=== PATIENT | male | born 1965 | race Caucasian/White ===

== ENCOUNTER → 2016-12-01 | Outpatient (CLI) | payer BC ==
[2016-12-01 13:13] LABS: Basophils % (A) 1 %; CH 32.5; CHCM 33.2; Eosinophils # (A) 0.1 k/uL (0-0.7); Eosinophils % (A) 2 %; HCT 49.2 % (39.0-53.0); HDW 2.35; HGB 16.3 gm/dL (13.0-17.5); Luc # (Auto) 0.11; Luc % (Auto) 1; Lymphocytes # (A) 1.5 k/uL (1.0-4.8); Lymphocytes % (A) 19 %; MCH 32.5 pg (25.0-35.0); MCHC 33.1 g/dL (31.0-37.0); MCV 98.3 fL (80.0-100.0); Mean Platelet Volume 7.7; Monocytes # (A) 0.5 k/uL (0-1.0); Monocytes % (A) 6 %; Neutrophils # (A) 5.5 k/uL (1.3-7.7); Neutrophils % (A) 72 %; RDW 13.3 % (11.5-15.5); WBC 7.7 k/uL (3.8-10.6); WBC (Perox) 7.62
[2016-12-01 13:17] LABS: Appearance,Urine Clear (Clear); Bilirubin,Urine Negative (Negative); Glucose,Urine (UA) Negative (Negative); Ketones,Urine Negative (Negative); Leukocyte Esterase,Urine Negative (Negative); Nitrite,Urine Negative (Negative); Protein,Urine Negative (Negative); Specific Gravity,Urine 1.012 (1.001-1.035); UA Billing (MACRO vs. MICRO) CHEM
[2016-12-01 13:21] LABS: Partial Thromboplastin Time 25.5 sec (22.0-30.0); Prothrombin Time 10.2 sec (9.0-12.0)
[2016-12-01 13:23] LABS: Anion Gap 6 mmol/L; Blood Urea Nitrogen 8 mg/dL (9-20); Calcium 9.4 mg/dL (8.4-10.2); Carbon Dioxide 30 mmol/L (22-30); Chloride 103 mmol/L (98-107); Glucose 90 mg/dL (74-99); Non-African American GFR(MDRD) >60 (>60 ml/min/1.73 sqM); Potassium 4.7 mmol/L (3.5-5.1); Sodium 139 mmol/L (137-145)
== END | disposition home or self-care (01) ==
LOC: LABPAT 12:36
PROVIDERS: ATTEND Orthopaedic Surgery Orthopaedic Surgery of the Spine
DX: Z01.810 Encounter for preprocedural cardiovascular examination (principal); M48.02 Spinal stenosis, cervical region
CPT/HCPCS: 80048; 81003; 85025; 85610; 85730; 86850; 86900; 86901

== ENCOUNTER 2016-12-10 07:00 | Inpatient (IN) | payer BC, OTHER ==
[2016-12-05 14:26] VITALS: BMI 24.0
[~2016-12-10 07:00] MED LIST: BACITRACIN 50,000 UNIT, POLYMYXIN B 500,000 UNIT in SODIUM CHLORIDE 0.9% IRRIGATIO 1,00... IRRIGATION ONE; DEXAMETHASONE SOD PHOSPHATE 10 MG/ML 1 ML VIAL IV ONE; MIDAZOLAM 2 MG/2 ML VIAL IV PRN; ONDANSETRON 4 MG/2 ML VIAL IVP ONE; SCOPOLAMINE 1.5MG/72HR PATCH TRANSDERM ONE; ceFAZolin 2 GM in SODIUM CHLORIDE 0.9% 100 ML IVPB ONE
[2016-12-10] MEDS: LACTATED RINGERS 1,000 ML IV SCH (08:39)
[2016-12-10] MEDS ORDERED: LIDOCAINE 1% 20 ML VIAL (10MG/ML) FOR IV START INTRADERMA ONE (08:40)
[2016-12-10] MEDS ORDERED: DEXAMETHASONE SOD PHOS (MDV) 100 MG/10 ML VIAL ONE (09:24)
[2016-12-10] MEDS ORDERED: THROMBIN (BOVINE) 5,000 UNIT VIAL TOPICAL ONE (09:24)
[2016-12-10] MEDS ORDERED: LIDOCAINE 1% INJ 10MG/ML (20 ML MDV) ONE (09:24)
[2016-12-10] MEDS ORDERED: ePHEDrine 50 MG/ML 1 ML AMP ONE (09:24)
[2016-12-10] MEDS ORDERED: SUCCINYLCHOLINE CHLORIDE 100 MG/5 ML SYR IV ONE (09:24)
[2016-12-10] MEDS ORDERED: PROPOFOL 10 MG/ML 20 ML VIAL IV ONE (09:24)
[2016-12-10] MEDS ORDERED: GELATIN SPONGE,ABSORB (LARGE) 1 EACH SPONGE TOPICAL ONE (09:24)
[2016-12-10] MEDS ORDERED: MIDAZOLAM 2 MG/2 ML VIAL ONE (09:24)
[2016-12-10] MEDS ORDERED: fentaNYL (PF) 50 MCG/ML 2 ML AMP ONE (09:24)
[2016-12-10] MEDS ORDERED: LIDOCAINE 0.5%-EPI 1:200,000 50 ML VIAL SQ ONE (09:24)
[2016-12-10] MEDS ORDERED: LACTATED RINGERS 1,000 ML IV ONE (10:15)
--- NOTE | 2016-12-10 10:29 | XR ---
EXAMINATION TYPE: XR cervical spine 1V DATE OF EXAM: 12/10/2016 10:17 AM CLINICAL HISTORY: pain TECHNIQUE: Crosstable lateral view of the cervical spine COMPARISON: None. FINDINGS: A localization device is at the C5-6 level anteriorly. IMPRESSION: Localization as noted
[2016-12-10] MEDS ORDERED: ONDANSETRON 4 MG/2 ML VIAL IVP PRN (11:51)
[2016-12-10] MEDS ORDERED: BENZOCAINE/MENTHOL LOZENG 1 EACH LOZENGE MUCOUS MEM PRN (11:51)
[2016-12-10] MEDS ORDERED: HYDROcodone/APAP 5-325MG 1 EACH TAB PO PRN ×2 (11:51)
[2016-12-10] MEDS ORDERED: PANTOPRAZOLE 40 MG TABLET PO PRN (11:53)
[2016-12-10] MEDS ORDERED: TOPIRAMATE 25 MG TAB PO PRN (11:53)
--- NOTE | 2016-12-10 12:00 | P.OP ---
Date of Procedure: 12/10/16 Preoperative Diagnosis: Cervical stenosis C4 5 C5 6 C6 7, herniated nucleus pulposis C4 5 C5 6 C6 7, degenerative disc disease C4 5 C5 6 C6 7, upper extremity radiculopathy Postoperative Diagnosis: Same Anesthesia: GETA Pathology: none sent Condition: stable Disposition: PACU Description of Procedure: BRIEF OPERATIVE NOTE Preoperative Diagnosis: Cervical stenosis C4 5 C5 6 C6 7, herniated nucleus pulposis C4 5 C5 6 C6 7, degenerative disc disease C4 5 C5 6 C6 7, upper extremity radiculopathy with weakness Postoperative Diagnosis: Same Procedure: Anterior cervical decompression with discectomy and fusion C4 5 C5 6 C6 7 Placement of interbody graft C4 5 C5 6 C6 7 Application of anterior cervical plate C4 5 6 and 7 Surgeon: Dr. Navarro Last Inserter: Raúl Sagastume is present throughout the entire the case persistence during positioning, dissection, exposure, visualization, and all crucial elements of the case as well as closure. Anesthesia: General anesthesia Estimated blood loss: Approximately 100 mL Complications: None apparent Components implanted: K2M [place] anterior cervical plate system size 56 plate with 8 screws and vikos allograft bone graft Disposition: To recovery room in good stable condition. OPERATIVE INDICATIONS The patient has had long-standing issues in their neck and upper extremities. His found have significant stenosis with disc herniations at C4 5 C5 6 C6 7. She had significant degeneration with compression of his nerves. He was having sick significant radiculopathy particular at the right upper extremity and some evidence of weakness. He is not resolving despite aggressive conservative treatment and interventional pain management. He is having worsening symptoms despite conservative care The patient has been through conservative treatment. We discussed various treatment options including surgery, and the patient wishes to proceed with surgery We discussed the risk, patient's alternatives and benefits of surgery including but not limited to, risk of bleeding risk of infection, risk of need for further surgery, risk of decreased, loss of motion, muscle function, malunion nonunion, hardware failure, nerve damage, paralysis, heart attack, and . OPERATIVE SUMMARY After discussing all the risks, patient alternatives and benefits at length, the patient elected to proceed with surgical intervention, signed informed consent, and presented for their procedure. The patient was seen and examined in the preoperative holding area and the surgical site was marked. The patient was given antibiotics and brought to the operating room. The patient was positioned on the operating room table in a supine position being careful to pad any bony prominences and pressure points. The patient was sedated and intubated by anesthesia in standard fashion. Once the airway and C- spine were stabilized the patient's arms were padded and tucked at her side, with her shoulders gently taped. The head was placed in a donut pad with the neck in good neutral alignment and position. We were careful to maintain the patient's cervical spine and good neutral alignment and position throughout. The patient was prepped and draped in a normal standard fashion. An appropriate timeout and keystone protocol performed. We were able to proceed with the surgery. The local wound area was infiltrated with local anesthetic. An incision was made transversely approximately 2-1/2 cm over the appropriate levels at C5 6. Dissection was taken down subcutaneously to the level of the platysma which was split in line with its fibers. Dissection was taken with a carotid approach, with the trachea and esophagus medial and the carotid sheath laterally. We dissected down to the anterior surface of the vertebral bodies. Intraoperative x-ray was taken which showed a marker at the appropriate level at C5 6. With the appropriate level positively confirmed, we were able to proceed with discectomy at the appropriate levels. All of the operative levels were exposed appropriately. The patient had all their twitches back, and there was no evidence of recurrent laryngeal issue. The wound was copiously irrigated and suctioned dry as had been done periodically throughout the case. At the appropriate level/levels, first at C4 5 than at C5 6 then at C6 7, I established an annulotomy with an 11 blade scalpel. Large osteophytes removed from the anterior vertebral bodies particularly at C5 6, A discectomy was performed with a combination of pituitary rongeurs, curettes, a high-speed bur, and Kerrison rongeurs. The posterior longitudinal ligament was taken down as were any posterior osteophytes. There are posterior osteophytes which were taken down centrally and at the lateral margins. This gave good central and bilateral foraminal decompression. There is no evidence of any dural tear or leak. The endplates were prepared with a high-speed bur. With the endplates in good parallel position, I was able to size for the appropriate size interbody graft. The wound was irrigated and suctioned dry the graft was prepared and malleted into position. It had good alignment and position with the anterior surface flush with the anterior surface of the vertebral bodies. This was done similarly the appropriate levels. With the grafts intact, I was able to measure and contour and appropriate sized plate. The plate was positioned at the midline over the appropriate levels from C4 to C7. Screw holes were established with a hand drill and drill guide. Screws were placed in good alignment and position with excellent bony purchase. They were seated under the locking device. The construct was checked and found to be stable. Intraoperative x-ray was taken which showed good alignment and position of the implants at the appropriate levels from C4 to C7. There was no evidence of any dural tear or leak. Good hemostasis was maintained. The wound was copiously irrigated and suctioned dry as had been done periodically throughout the case. The platysma was closed with absorbable suture. The subcutaneous tissue was closed. The subcuticular tissue was closed with absorbable suture. The wound was cleaned and dried and dressed appropriately. A soft cervical collar was placed appropriately. The patient was woken up by anesthesia, extubated, transferred back gently to their hospital bed and brought to the recovery room in good stable condition. The patient will be admitted to the hospital for appropriate postoperative care , medical management and monitoring. We will continue to follow them closely about the postoperative course.
[2016-12-10 12:07] VITALS: RESP 16
--- NOTE | 2016-12-10 12:09 | XR ---
EXAMINATION TYPE: XR cervical spine 1V DATE OF EXAM: 12/10/2016 11:41 AM COMPARISON: NONE HISTORY: acdf TECHNIQUE: xtable lateral view FINDINGS: ACDF changes C4-C7. Anterior fixation plate. Alignment wnl.
[2016-12-10] MEDS: HYDROmorphone 1 MG/ML 1 ML SYRINGE IVP PRN ×4 (12:18→23:49)
[2016-12-10] MEDS ORDERED: ONDANSETRON 4 MG/2 ML VIAL IVP ONE (12:29)
[2016-12-10] MEDS: DIAZEPAM 5 MG TAB PO PRN ×2 (12:46→17:49)
[2016-12-10] MEDS: SODIUM CHLORIDE 0.9% 1,000 ML IV SCH (14:15)
--- NOTE | 2016-12-10 15:42 | P.PN ---
Progress Note - Text Patient is seen postoperatively on the floor. Apparently he has been quite agitated and is complaining primarily of burning with urination. He is not complaining of arm pain or headaches currently. He is ambulatory around the room. He has been combative with and yelling at the nursing staff. He states that he is going to leave the hospital. His incision site appears to be clean his neck is soft and supple. He is amatory independently. He is conversant with me. He has urine in the Journal. He apparently urinated about 50 mL downstairs recovery in his urinated approximately 20 more cc here on the medical floor into the urinal. Urine appears to be clear yellow with no evidence of purulence. Is not cloudy. His extremities have good active passive range of motion throughout. Immediate postop status post anterior cervical discectomy and fusion C 56 C6 7 Dysuria The patient has dysuria postoperatively. He did have a Monet catheter placed during the surgery which was apparently not traumatic. There does not appear to be any obvious blood or obvious discoloration and his urine currently but we will send it for urinalysis. With his agitation and demeanor all go ahead and send toxicology as well. The patient is quite agitated and is stating that he would like to go home. If his neck is clear and stable and he is able tolerate soft diet, if he is able to void freely without evidence of infection, if he is able tolerate pain adequately with oral medications and the surgical site appears stable than I would be okay with him being discharged home this evening with close follow-up. If he is not able to do these things and we should keep him overnight. I tried to explain this to him but it is difficult to determine if he is fully understanding as he still remains agitated though conversant. From a surgical standpoint we have not had any specific nor notable issues or problems with his treatment procedures thus far. There has not been any apparent deviation or propblem with standard procedure to account for his current complaints. We will continue to workup his issues to try to find a resolution for his primary complaint which is burning on urination. I tried to discuss this with him at bedside and answers questions.
[2016-12-10] MEDS ORDERED: ceFAZolin 2 GM in SODIUM CHLORIDE 0.9% 100 ML IVPB SCH (16:00)
[2016-12-10] MEDS ORDERED: LIDOCAINE 2% GEL 30 ML TUBE TOPICAL PRN (16:10)
[2016-12-10 16:17] LABS: Basophils % (A) 0 %; CH 32.5; Eosinophils % (A) 0 %; HCT 42.2 % (39.0-53.0); HDW 2.36; HGB 14.5 gm/dL (13.0-17.5); Luc # (Auto) 0.03; Luc % (Auto) 0; Lymphocytes # (A) 0.5 k/uL (1.0-4.8); Lymphocytes % (A) 3 %; MCHC 34.4 g/dL (31.0-37.0); Mean Platelet Volume 7.8; Monocytes # (A) 0.3 k/uL (0-1.0); Monocytes % (A) 2 %; Neutrophils # (A) 16.4 k/uL (1.3-7.7); Neutrophils % (A) 95 %; RDW 13.1 % (11.5-15.5); WBC 17.3 k/uL (3.8-10.6); WBC (Perox) 17.26
[2016-12-10 16:26] LABS: Anion Gap 7 mmol/L; Blood Urea Nitrogen 12 mg/dL (9-20); Calcium 8.6 mg/dL (8.4-10.2); Carbon Dioxide 24 mmol/L (22-30); Chloride 107 mmol/L (98-107); Glucose 107 mg/dL (74-99); Non-African American GFR(MDRD) >60 (>60 ml/min/1.73 sqM); Potassium 3.7 mmol/L (3.5-5.1); Sodium 138 mmol/L (137-145)
[2016-12-10 16:46] LABS: Appearance,Urine Clear (Clear); Bacteria,Urine Rare /hpf; Bilirubin,Urine Negative (Negative); Glucose,Urine (UA) Negative (Negative); Ketones,Urine Negative (Negative); Leukocyte Esterase,Urine Trace (Negative); Nitrite,Urine Negative (Negative); Particle Count 264; Protein,Urine Negative (Negative); Specific Gravity,Urine 1.002 (1.001-1.035); UA Billing (MACRO vs. MICRO) MICRO; Urobilinogen,Urine <2.0 mg/dL (<2.0); WBC,Urine 7 /hpf (0-5)
[2016-12-10] MEDS ORDERED: diphenhydrAMINE 50 MG/ML 1 ML VIAL IVP PRN (19:18)
[2016-12-10] MEDS ORDERED: diphenhydrAMINE 50 MG/ML 1 ML VIAL IVP STA (19:22)
[2016-12-10] MEDS ORDERED: CLINDAMYCIN 300 MG in DEXTROSE 5% IN WATER 50 ML IVPB STA ×2 (19:22)
[2016-12-10] MEDS: clonazePAM 1 MG TAB PO SCH (21:23)
[2016-12-11] MEDS: SODIUM CHLORIDE 0.9% 1,000 ML IV SCH (04:07)
[2016-12-11] MEDS: LACTATED RINGERS 1,000 ML IV SCH (05:57)
[2016-12-11] MEDS: HYDROmorphone 1 MG/ML 1 ML SYRINGE IVP PRN (06:46)
--- NOTE | 2016-12-11 08:00 | P.DS ---
Providers Date of admission: 12/10/16 07:00 Attending physician: Leisa Navarro Primary care physician: [place] Hospital Course: The patient presented on the day of admission as per his operative note.he underwent anterior cervical discectomy and fusion at C4 5 C5 6 and C6 7 for his cervical stenosis with herniations. He is able to swallow and is tolerating his soft diet. He has been ambulatory and is voiding freely. His pain is controlled with oral medications. Physical Exam The incision site is clean dry and intact. There is no erythema no drainage. There is no purulence no evidence of infection.his neck is soft and supple. There is no active drainage. Abdomen soft and nontender. Chest has good excursion with deep inspiration and expiration. The patient has active and passive range of motion intact at the upper and lower extremities. There is no acute change in neurologic status.he has good range of motion of his upper extremity's bilaterally. Hospital Course postoperative day #1 status post anterior cervical discectomy and fusion C4 5 C5 6 C6 7 for his cervical stenosis with disc herniation and upper extremity radiculopathy. The patient has been making good progress postoperatively. They have completed the prophylactic antibiotics without any signs or symptoms of infection. The patient has been able to advance their diet, and is tolerating diet adequately. The pain was initially controlled with IV medications and is now controlled appropriately with oral medications. The patient has been able to increase their mobilization. The patient has progressed appropriately. I think they are in good stable condition for discharge today. They will be sent home with appropriate prescriptions. I answered their questions to the best of my ability in a language that they can understand and they are agreeable with the plan. They will follow up as directedIn approximately 2 weeks or sooner if he is having any problems. Patient Condition at Discharge: Good Plan - Discharge Summary New Discharge Prescriptions: Hydrocodone/Acetaminophen [[place] 5-325] 1 tab PO Q6HR PRN #90 tab PRN Reason: Pain Discharge Medication List Citalopram Hydrobromide [CeleXA] 40 mg PO DAILY 12/05/16 [History] Ibuprofen [Motrin] 800 mg PO Q8HR PRN 12/05/16 [History] Omeprazole 20 mg PO DAILY PRN 12/05/16 [History] Topiramate [Topamax] 25 mg PO DAILY PRN 12/05/16 [History] clonazePAM [KlonoPIN] 1 mg PO BID 12/05/16 [History] Hydrocodone/Acetaminophen [[place] 5-325] 1 tab PO Q6HR PRN #90 tab 12/10/16 [Rx] Follow up Appointment(s)/Referral(s): Leisa Navarro DO [Doctor of Osteopathic Medicine] - 2 Weeks (With Raúl Puckett at Dr. Navarro's office) Activity/Diet/Wound Care/Special Instructions: avoid heavy or rigorous activity. May ambulate to tolerance. No overhead work. No repetitive bending twisting or lifting. No lifting greater than 20 pounds. Keep site clean. May shower with waterproof Tegaderm intact. Do not soak in a tub. On Thursday May remove dressing and then a shower with area uncovered, believed Steri-Strips intact and allow them to fray off on their own.
[2016-12-11] MEDS: clonazePAM 1 MG TAB PO SCH (08:03)
[2016-12-11 08:14] VITALS: BP 118/71; PULSE 76; TEMP 97.7
[2016-12-11] MEDS ORDERED: CITALOPRAM HYDROBROMIDE 20 MG TAB PO SCH (09:00)
== END 2016-12-11 11:05 | disposition home or self-care (01) | DRG 473 ==
LOC: 2ORMAIN 07:00 → 5MS5E 12:00
PROVIDERS: ADMIT Orthopaedic Surgery Orthopaedic Surgery of the Spine; ATTEND Orthopaedic Surgery Orthopaedic Surgery of the Spine
PROC: 0RG20Z0 (ICD-10-PCS; principal; 2016-12-10 09:10)
PROC: 0RT30ZZ Resection of Cervical Vertebral Disc, Open Approach (ICD-10-PCS; principal; 2016-12-10 09:10)
DX: M50.121 Cervical disc disorder at C4-C5 level with radiculopathy (principal); F32.9 Major depressive disorder, single episode, unspecified; M48.02 Spinal stenosis, cervical region; M50.221 Other cervical disc displacement at C4-C5 level; M50.222 Other cervical disc displacement at C5-C6 level; M50.223 Other cervical disc displacement at C6-C7 level; Z79.1 Long term (current) use of non-steroidal anti-inflammatories (NSAID); Z79.899 Other long term (current) drug therapy; K21.9 Gastro-esophageal reflux disease without esophagitis; F41.9 Anxiety disorder, unspecified; Z72.0 Tobacco use
CPT/HCPCS: 72020; 80048; 80306; 81001; 85025; 86850; 86900; 86901

== ENCOUNTER → 2017-12-23 | Outpatient (CLI) | payer BC ==
--- NOTE | 2017-12-23 07:34 | MR ---
EXAMINATION TYPE: MR cervical spine wo/w con DATE OF EXAM: 12/23/2017 6:45 AM COMPARISON: NONE HISTORY: M54.2 Cervicalgia / M54.12 Radiculopathy CONTRAST: 7 cc Gadavist. Multiplanar MultiSpin echo imaging of the cervical spine was performed. C2-C3: No evidence for degenerative disc disease. No disc bulge/herniation or protrusion. No Canal stenosis. Foramina are patent bilaterally. C3-C4: There is mild disc desiccation noted. Posterior disc bulge with small annular tear. Mild effac ement ventral thecal sac. No evidence for steven herniation or central stenosis. Visualized neural for los are patent bilaterally. C4-C5: Postsurgical changes of anterior cervical discectomy and fusion. No evidence for recurrent or residual disease. Mild posterior hypertrophic change identified. Mild effacement ventral thecal sac. Constriction of the thecal sac without evidence for overt stenosis at this time. Foramina are patent. C5-C6: Postsurgical changes of anterior cervical discectomy and fusion. No evidence for recurrent or residual disease. Mild posterior hypertrophic change identified. Mild effacement ventral thecal sac. Constriction of the thecal sac without evidence for overt stenosis at this time. Foramina are patent. C6-C7:Postsurgical changes of anterior cervical discectomy and fusion. No evidence for recurrent or r esidual disease. Mild posterior hypertrophic change identified. Mild effacement ventral thecal sac. C onstriction of the thecal sac without evidence for overt stenosis at this time. Mild right foraminal encroachment identified. C7-T1: No evidence for degenerative disc disease. No disc bulge/herniation or protrusion. No Canal stenosis. Foramina are patent bilaterally. No cervical spine fracture. There is normal alignment. Cervical spinal cord is of normal signal. C raniovertebral junction relationships are within normal limits. No pathologic enhancement. IMPRESSION: 1. Postsurgical changes of ACDF at C4-5, C5-6 and C6-7. There is hypertrophic change noted at each of these levels posteriorly with constriction of the thecal sac however no overt stenosis seen. See abo ve. 2. Posterior disc bulge with annular tear at C3-4.
== END | disposition home or self-care (01) ==
LOC: RADMRIMAIN 05:55
PROVIDERS: ATTEND Orthopaedic Surgery Orthopaedic Surgery of the Spine
DX: Z48.89 Encounter for other specified surgical aftercare (principal); M50.11 Cervical disc disorder with radiculopathy, high cervical region; Z98.890 Other specified postprocedural states; Z98.1 Arthrodesis status
CPT/HCPCS: 72156; A9581

== ENCOUNTER 2018-09-02 06:23 | Day surgery (SDC) | payer BC, OTHER ==
[2018-08-31 13:35] VITALS: BMI 25.0
[~2018-09-02 06:23] MED LIST changes: -BACITRACIN 50,000 UNIT, POLYMYXIN B 500,000 UNIT in SODIUM CHLORIDE 0.9% IRRIGATIO 1,00... IRRIGATION ONE; -DEXAMETHASONE SOD PHOSPHATE 10 MG/ML 1 ML VIAL IV ONE; +LACTATED RINGERS 1,000 ML IV SCH; +LIDOCAINE 1% 20 ML VIAL (10MG/ML) FOR IV START INTRADERMA PRN; -MIDAZOLAM 2 MG/2 ML VIAL IV PRN; -ONDANSETRON 4 MG/2 ML VIAL IVP ONE; -SCOPOLAMINE 1.5MG/72HR PATCH TRANSDERM ONE; -ceFAZolin 2 GM in SODIUM CHLORIDE 0.9% 100 ML IVPB ONE
[2018-09-02 07:19] VITALS: TEMP 96.8
[2018-09-02] MEDS ORDERED: PROPOFOL 10 MG/ML 20 ML VIAL IV ONE (07:33)
[2018-09-02] MEDS ORDERED: IV FLUID CONTINUATION 500 ML IV ONE (08:08)
--- NOTE | 2018-09-02 08:13 | P.PCN ---
Date of Procedure: 09/02/18 Description of Procedure: BRIEF HISTORY: Patient is a 53-year-old pleasant male patient scheduled for an elective colonoscopy as a part of screening. The patient has no prior history of colonoscopy in the past. He reports a familial history of colon cancer in his father. He denies any change in bowel habits, diarrhea, constipation, hematochezia or melena. PROCEDURE PERFORMED: Colonoscopy. PREOPERATIVE DIAGNOSIS: High risk screening colonoscopy, patient's first colonoscopy, family history of colon cancer. ESTIMATED BLOOD LOSS: Minimal. IV sedation per Anesthesia. PROCEDURE: After informed consent was obtained, the patient, was brought into the endoscopy unit. IV sedation was administered by Anesthesia under continuous monitoring. Digital rectal examination was normal. Initially the Olympus CF- 190 flexible video colonoscope was then inserted in the rectum, gradually advanced into the cecum without any difficulty. Careful examination was performed as the scope was gradually being withdrawn. Ileocecal valve and the appendiceal orifice were visualized and appeared normal. Prep was good. Mucosa of the cecum, ascending colon, transverse colon, descending colon, sigmoid colon , and rectum appeared normal, with mild scattered diverticulosis in the sigmoid and descending colon. Retroflexion was performed in the rectum and no lesions were seen, mild internal hemorrhoids seen. The patient tolerated the procedure well. IMPRESSION: Normal-appearing colon from rectum to cecum. Diverticulosis. Internal hemorrhoids. RECOMMENDATIONS: Findings of this examination were discussed with the patient and his sister. Okay to resume diet today. Repeat colonoscopy in 5 years given family history of colon cancer.
[2018-09-02 08:38] VITALS: BP 107/72; PULSE 71; RESP 18
== END 2018-09-02 09:20 | disposition home or self-care (01) ==
LOC: ORWHC2ENDO 06:23
PROVIDERS: ATTEND Internal Medicine
DX: Z12.11 Encounter for screening for malignant neoplasm of colon (principal); K57.30 Diverticulosis of large intestine without perforation or abscess without bleeding; K64.8 Other hemorrhoids; Z80.0 Family history of malignant neoplasm of digestive organs; K21.9 Gastro-esophageal reflux disease without esophagitis; K22.70 Barrett's esophagus without dysplasia; E78.5 Hyperlipidemia, unspecified; F41.9 Anxiety disorder, unspecified; Z79.899 Other long term (current) drug therapy; F17.210 Nicotine dependence, cigarettes, uncomplicated; Z98.1 Arthrodesis status
CPT/HCPCS: J2704; G0105

== ENCOUNTER → 2019-02-12 | Outpatient (CLI) | payer OTHER ==
--- NOTE | 2019-02-12 20:58 | MR ---
EXAMINATION TYPE: MR brain wo con DATE OF EXAM: 02/12/2019 COMPARISON: 12/18/2015 HISTORY: Migraine, dizziness, rt sided weakness/numbness TECHNIQUE: Multiplanar, multisequence images of the brain and brainstem is performed without IV. FINDINGS: Diffusion weighted images demonstrate no evidence of a recent infarct or other diffusion ab normality. There is no extra-axial fluid collection. The ventricular system and cisternal spaces are normal in size and appearance. The brain volume is age appropriate. Artifact is seen through the cerebellar hemispheres. There is stable size and number of the moderate burden of supratentorial nonspecific white matter changes predominating within the deep white matter demonstrated as T2/FLAIR hyperintensities with old lacunar injury of the left frontal hassan radiata unchanged from the prior of 2016. A solitary focus is seen within the left lateral melina on FLAIR axia l fat sat image 10 that is new from the prior. Midline structures demonstrate normal morphology. The craniocervical junction appears within normal limits. The dural venous sinuses appear patent. The visualized sinuses are clear and the globes are i ntact. Left-sided meliza bullosa is incidentally seen as well as scant mucosal thickening in the ethm oid sinuses. There is partial opacification of the right mastoid air cells. The globes are symmetric. Lenses are in place. Remaining visualized paranasal sinuses and mastoid air cells are well aerated. Left middle and inferior nasal turbinate mucosal hypertrophy is incidentally seen. IMPRESSION: 1. There is a new 5 mm left pontine focus of white matter change and stable size and number of the mo derate burden nonspecific white matter change in the supratentorial in comparison to the exam of 2016 . Considerations are for demyelinating disease or vasculitis given the distribution. Old left frontal deep white matter hassan radiata lacunar injury is unchanged. 2. Mild paranasal sinus disease and mucosal thickening of the left nasal turbinates with meliza bullo sa on the left incidentally seen.
== END | disposition home or self-care (01) ==
LOC: RADMRIMAIN 09:38
PROVIDERS: ATTEND Psychiatry & Neurology Neurology
DX: R90.89 Other abnormal findings on diagnostic imaging of central nervous system (principal)
CPT/HCPCS: 70551

== ENCOUNTER → 2019-08-25 | Outpatient (CLI) | payer OTHER ==
[2019-08-25 13:09] LABS: Basophils # (A) 0.1 k/uL (0-0.2); Basophils % (A) 2 %; Eosinophils # (A) 0.1 k/uL (0-0.7); Eosinophils % (A) 2 %; HCT 44.9 % (39.0-53.0); HGB 15.3 gm/dL (13.0-17.5); Lymphocytes # (A) 1.5 k/uL (1.0-4.8); Lymphocytes % (A) 20 %; MCH 32.2 pg (25.0-35.0); MCHC 34.2 g/dL (31.0-37.0); MCV 94.1 fL (80.0-100.0); Mean Platelet Volume 8.4; Monocytes # (A) 0.5 k/uL (0-1.0); Monocytes % (A) 7 %; Neutrophils % (A) 68 %; Platelet Count 213 k/uL (150-450); RBC 4.77 m/uL (4.30-5.90); RDW 12.6 % (11.5-15.5); WBC 7.4 k/uL (3.8-10.6)
[2019-08-25 18:54] LABS: African American GFR (CKD) 111.8 (60.0-200.0); Albumin 4.4 g/dL (3.80-4.90); Albumin/Globulin Ratio 2.2 (1.60-3.17); Anion Gap 6.2 mmol/L (4.00-12.00); BUN/Creat Ratio 11.11 Ratio (12.00-20.00); Calcium 9.3 mg/dL (8.7-10.3); Carbon Dioxide 28.8 mmol/L (21.6-31.8); Chol/HDL Ratio 3.95; LDL Cholesterol,Calculated 96.4 mg/dL (0.0-131.0); Non-African American GFR(CKD) 96.5 (60.0-200.0); Potassium 4.7 mmol/L (3.5-5.5); Total Bilirubin 0.4 mg/dL (0.2-1.2); Total Protein 6.4 g/dL (6.2-8.2); VLDL Calculation 21.6 mg/dL (5.00-40.00)
== END | disposition home or self-care (01) ==
LOC: LABWHC1 12:34
PROVIDERS: ATTEND Internal Medicine
DX: Z12.5 Encounter for screening for malignant neoplasm of prostate (principal); Z13.6 Encounter for screening for cardiovascular disorders; R53.83 Other fatigue; R68.2 Dry mouth, unspecified
CPT/HCPCS: 36415; 80053; 80061; 82607; 84153; 84443; 85025; 86038; 86235

== ENCOUNTER → 2020-03-01 | Outpatient (CLI) | payer OTHER ==
--- NOTE | 2020-03-01 16:54 | MR ---
EXAMINATION TYPE: MR cervical spine wo/w con DATE OF EXAM: 03/01/2020 COMPARISON: 12/23/2017 HISTORY: Radiculopathy, PAN CONTRAST: Performed utilizing 7 mL intravenous Gadavist gadolinium contrast. TECHNIQUE: Multiplanar multiecho imaging on a 3.0 Bhakti magnet is performed through the cervical spin e. FINDINGS: The craniovertebral junction is normal. Vertebral body alignment is normal. There is consuelo or anterior cervical fusion C4-C7. Susceptibility artifact this level limits evaluation of the disc s paces and vertebral bodies. C7-T1: Small left paracentral disc bulge has anterior thecal sac compression. No AP spinal canal lexx nosis present. Neural foramen are patent.. C6-7: Right paracentral disc bulging or endplate spurring may be present with moderate anterior theca l sac compression. This comes in close approximation with the spinal cord. No AP spinal canal stenosi s present. There is moderate right foraminal stenosis.. C5-6: Some minimal central protrusion or endplate spurring may be present which comes in close approx imation with the spinal cord. No cord deformity is evident. C4-5: No focal disc herniation is evident. Mild endplate changes have anterior thecal sac flattening. Uncovertebral joint hypertrophy is moderate right foraminal narrowing. Some left foraminal narrowing is also present.. C3-4: Central broad-based disc bulge has mild to moderate anterior thecal sac compression. No cord co ntact is evident. No spinal canal stenosis present. Neural foramen are patent. C2-3: No focal disc herniation or significant disc bulge is evident. No spinal canal stenosis or carol ral foraminal stenosis is present. No suspicious enhancement is evident. Findings are stable over the interval. IMPRESSIONS: 1. Postsurgical anterior fusion, stable from comparison. 2. Mild disc bulging including central disc bulging C3-4 with mild to moderate anterior thecal sac co mpression,, minimal central protrusion at C5-6, right paracentral disc bulging C6-7. Findings are sta ble from comparison 3. Mild to moderate foraminal narrowing discussed above, stable from comparison.
== END | disposition home or self-care (01) ==
LOC: RADMRIMAIN 14:30
PROVIDERS: ATTEND Internal Medicine
DX: M48.02 Spinal stenosis, cervical region (principal); M50.123 Cervical disc disorder at C6-C7 level with radiculopathy; Z98.1 Arthrodesis status
CPT/HCPCS: 72156; A9585

== ENCOUNTER → 2020-06-30 | Outpatient (CLI) | payer OTHER ==
--- NOTE | 2020-07-01 14:17 | MR ---
MR brain without contrast HISTORY: Migraine without aura, dizziness, right-sided weakness and numbness Multiplanar multisequence imaging obtained through the brain Correlation to prior MR brain 02/12/2019 There is no restricted diffusion. There is no hemorrhage or hydrocephalus. There are normal vascular flow voids. Scattered hyperintensities are present within the periventricular and subcortical white m atter similar to prior exam. Probable encephalomalacia present adjacent to the frontal horn of the le ft lateral ventricle with some associated gliosis similar to prior. Some mucosal thickening is presen t within the maxillary sinuses and ethmoid air cells, frontal sinus. The orbits show symmetric appear ance. Cerebellopontine angles, corpus callosum, pituitary, cervical medullary junction are within nor mal limits. Mild increased signal in the mastoid air cells on the left similar to prior. IMPRESSION: Stable exam, no acute abnormality. Nonspecific white matter demyelination could be due to chronic small vessel ischemic changes, migraine headaches, hypertension, multiple sclerosis felt to be less likely.
== END | disposition home or self-care (01) ==
LOC: RADMRIMAIN 07:52
PROVIDERS: ATTEND Internal Medicine
DX: G37.8 Other specified demyelinating diseases of central nervous system (principal)
CPT/HCPCS: 70551

== ENCOUNTER → 2021-10-15 | Outpatient (CLI) | payer MEDICARE, OTHER | END | disposition home or self-care (01) | LOC: LABWHC1 12:20 | PROVIDERS: ATTEND Surgery Plastic and Reconstructive Surgery | DX: I11.9 Hypertensive heart disease without heart failure (principal) | CPT/HCPCS: 36415; 93005 ==

== ENCOUNTER 2021-10-24 10:47 | Day surgery (SDC) | payer MEDICARE, OTHER ==
[2021-10-22 16:07] VITALS: BMI 24.3
[~2021-10-24 10:47] MED LIST changes: +DEXAMETHASONE SOD PHOSPHATE 4 MG/ML 1 ML VIAL IV ONE; +HEPARIN SODIUM,PORCINE/PF 5,000 UNIT/0.5 ML SYRINGE SQ PRN; +HYDROmorphone 0.5 MG/0.5 ML SYRINGE IVP PRN; -LIDOCAINE 1% 20 ML VIAL (10MG/ML) FOR IV START INTRADERMA PRN; +MIDAZOLAM 2 MG/2 ML VIAL IV PRN; +ONDANSETRON 4 MG/2 ML VIAL IVP ONE; +SCOPOLAMINE 1.5MG/72HR PATCH TRANSDERM ONE
[2021-10-24 11:22] VITALS: RESP 16
[2021-10-24 11:55] LABS: HCT 46.8 % (39.0-53.0); MCH 32.8 pg (25.0-35.0); MCHC 34.2 g/dL (31.0-37.0); MCV 95.9 fL (80.0-100.0); Mean Platelet Volume 8.3; Platelet Count 192 k/uL (150-450); RBC 4.88 m/uL (4.30-5.90); RDW 12.5 % (11.5-15.5)
[2021-10-24] MEDS ORDERED: GABAPENTIN 300 MG CAP PO STA (12:01)
[2021-10-24] MEDS ORDERED: TAMSULOSIN 0.4 MG CAP.ER.24H PO STA (12:01)
[2021-10-24] MEDS ORDERED: ACETAMINOPHEN TAB 500 MG TAB PO STA (12:01)
[2021-10-24] MEDS ORDERED: MELOXICAM 7.5 MG TAB PO SCH (12:15)
--- NOTE | 2021-10-24 12:19 | P.GSHP ---
History of Present Illness H&P Date: 10/24/21 CHIEF COMPLAINT: Inguinal hernia, left HISTORY OF PRESENT ILLNESS: The patient is a 56-year-old male who presents with a history of swelling and pain along the left groin. He's noted increased swelling including pain of the area. Now he presents for repair of his inguinal hernia. PAST MEDICAL HISTORY: Please see list. PAST SURGICAL HISTORY: Please see list. MEDICATIONS: Please see list. ALLERGIES: Please see list. SOCIAL HISTORY: No illicit drug use FAMILY HISTORY: No reports of Crohn disease or ulcerative colitis. REVIEW OF ORGAN SYSTEMS: CONSTITUTIONAL: No reports of fevers or chills. No reports of weight loss despite prior attempts. GI: Denies any blood in stools or constipation. PHYSICAL EXAM: VITAL SIGNS: Stable GENERAL: Well-developed pleasant male in no acute distress. HEENT: No scleral icterus. Extraocular movements grossly intact. Moist buccal mucosa. NECK: Supple without lymphadenopathy. CHEST: Unlabored respirations. Equal bilateral excursions. CARDIOVASCULAR: Regular rate and rhythm. Distal 2+ pulses. ABDOMEN: Soft, nondistended. No peritoneal signs. Left groin. MUSCULOSKELETAL: No clubbing, cyanosis, or edema. ASSESSMENT: 1. Inguinal hernia, lfet PLAN: 1. Recommend proceeding with a robotic inguinal repair with mesh with possible bilateral approach. 2. Benefits and risks of surgical intervention was discussed including possibility of open technique. 3. DVT prophylaxis. 4. Antibiotic prophylaxis. Past Medical History Past Medical History: GERD/Reflux, Hyperlipidemia Additional Past Medical History / Comment(s): lt inguinal hernia, Jacobs's esophagus,n/t rt arm History of Any Multi-Drug Resistant Organisms: None Reported Additional Past Surgical History / Comment(s): EGD,cervical fusion 3 levels Past Anesthesia/Blood Transfusion Reactions: No Reported Reaction Smoking Status: Current every day smoker - Past Family History Mother Family Medical History: Cancer Medications and Allergies Home Medications Medication Instructions Recorded Confirmed Type Omeprazole 20 mg PO QAM 12/05/16 10/24/21 History Atorvastatin [Lipitor] 20 mg PO DAILY 08/31/18 10/24/21 History HYDROcodone/APAP 10-325MG [[place] 1 tab PO DAILY PRN 10/22/21 10/24/21 History 10-325] Nyquil 1 dose PO HS PRN 10/22/21 10/24/21 History Allergies Allergy/AdvReac Type Severity Reaction Status Date / Time No Known Allergies Allergy Verified 10/24/21 11:16 Surgical - Exam Vital Signs Temp Pulse Resp BP Pulse Ox 97.8 F 79 16 117/74 100 10/24/21 11:21 10/24/21 11:21 10/24/21 11:21 10/24/21 11:21 10/24/21 11:21 Results - Labs 10/24/21 11:34
[2021-10-24] MEDS ORDERED: fentaNYL (PF) 50 MCG/ML 2 ML AMP IVP ONE ×3 (13:28→16:22)
[2021-10-24] MEDS ORDERED: MIDAZOLAM 2 MG/2 ML VIAL IVP ONE (13:28)
[2021-10-24] MEDS ORDERED: ROCURONIUM 10 MG/ML (5 ML VIAL) IV ONE (13:52)
[2021-10-24] MEDS ORDERED: GLYCOPYRROLATE 0.2 MG/ML 2 ML VIAL ONE (13:52)
[2021-10-24] MEDS ORDERED: SUCCINYLCHOLINE CHLORIDE 100 MG/5 ML SYR IV ONE (13:52)
[2021-10-24] MEDS ORDERED: SODIUM CHLORIDE 0.9% (PF) 10 ML VIAL ONE (13:52)
[2021-10-24] MEDS ORDERED: fentaNYL (PF) 50 MCG/ML 2 ML AMP ONE ×2 (13:52→16:19)
[2021-10-24] MEDS ORDERED: PROPOFOL 10 MG/ML 20 ML VIAL IV ONE (13:52)
[2021-10-24] MEDS ORDERED: HYDROmorphone (PF) 1 MG/ML ONE (13:52)
[2021-10-24] MEDS ORDERED: ROPIVACAINE 5 MG/ML 30 ML VIAL ONE (13:52)
[2021-10-24] MEDS ORDERED: LIDOCAINE 1% INJ 10MG/ML (20 ML MDV) ONE (13:52)
[2021-10-24] MEDS ORDERED: NEOSTIGMINE 1 MG/ML 10 ML VIAL ONE (13:52)
[2021-10-24] MEDS ORDERED: HEPARIN SODIUM,PORCINE 5,000 UNIT/ML 1 ML VIAL SQ ONE (13:53)
--- NOTE | 2021-10-24 13:55 | P.ANPRN ---
Procedure Note - Anesthesia - Nerve Block Performed Bilateral Erector Spinae Time Out Performed: Yes (:27) Date of Procedure: 10/24/21 Procedure Start Time: Procedure Stop Time: :48 Location of Patient: PreOp Indication: Acute Post-Operative Pain, Requested by Surgeon (Dr Pierson) Sedation Type: Sedate with meaningful contact maintained Preparation: Sterile Prep Position: Prone Catheter: None Needle Types: Pajunk Needle Gauge: 21 Ultrasound used to visualize needle placement: Yes Ultrasound used to observe medication spread: Yes Injectate: 0.5% Ropivacaine (see comment for volume) (15cc + 10cc PF Normal saline each side) Blood Aspirated: No Pain Paresthesia on Injection Noted: No Resistance on Injection: Normal Image Stored and Saved: Yes Events: Uneventful and Well Tolerated
[2021-10-24] MEDS ORDERED: LACTATED RINGERS 1,000 ML IV ONE ×2 (14:02→17:03)
[2021-10-24] MEDS ORDERED: BUPIVACAIN-EPI 0.25%-1:200,000 30 ML VIAL SQ ONE (14:27)
[2021-10-24 15:42] VITALS: TEMP 98
[2021-10-24] MEDS ORDERED: oxyCODONE-APAP 10-325MG 1 EACH TAB PO PRN (16:25)
[2021-10-24] MEDS ORDERED: KETOROLAC 15 MG/ML 1 ML VIAL IVP PRN (16:25)
[2021-10-24] MEDS ORDERED: GABAPENTIN 300 MG CAP PO PRN (16:26)
--- NOTE | 2021-10-24 16:29 | P.OP ---
Date of Procedure: 10/24/21 Description of Procedure: SURGEON: MARII JARRETT MD PREOPERATIVE DIAGNOSES: 1. Initial left inguinal hernia. 2. Chronic pain syndrome 3. Gastroesophageal reflux disease 4. Hyperlipidemia 5. Generalized anxiety disorder 6. Tobacco abuse disorder POSTOPERATIVE DIAGNOSES: 1. Initial left incarcerated inguinal hernia 3 cm, indirect 1. Initial right inguinal hernia 2. Chronic pain syndrome 3. Gastroesophageal reflux disease 4. Hyperlipidemia 5. Generalized anxiety disorder 6. Tobacco abuse disorder 7. Left inguinal lipoma OPERATION: 1. Robotic-assisted da Anatoliy Xi laparoscopic repair of initial incarcerated left indirect inguinal hernia with mesh, 11.[address] 2. Robotic-assisted da Anatoliy Xi laparoscopic repair of initial right indirect inguinal hernia without mesh 3. Resection of incarcerated subfascial left inguinal lipoma, 2 cm ANESTHESIA: General with local anesthetic ESTIMATED BLOOD LOSS: 5 mL. SPECIMENS: 1. Incarcerated left inguinal hernia 2. Left inguinal hernia sac COMPLICATIONS: None. FINDINGS: 1. Incarcerated initial left inguinal hernia, 3 cm, indirect with sigmoid colon epiploica 2. Right inguinal hernia less than 1 cm, indirect 3. Sigmoid diverticulosis INDICATIONS: The patient is a 56-year-old gentleman who presents with left inguinal hernia. Now he presents for surgical intervention. Laparoscopic versus open and robotic approaches were discussed. Benefits and risks including bleeding, infection, injury to the vas deferens as well as sterility and chronic groin pain were reviewed. Placement of mesh was also described. Informed consent was obtained. DESCRIPTION: In the preoperative area, the patient was marked with indelible marker along the inguinal hernia. The patient was brought to the operating room and initially laid in supine position. The abdomen had been prepped and draped in standard sterile fashion. Ioban draping was also placed. Prior to incision, a timeout protocol was confirmed with surgical team regarding patient's name including procedures to be performed and location. Initial positioning for the robotic assisted ports were selected 20 cm superior to the target anatomy, 0 degree 5 mm laparoscopic trocar entry was performed at the left upper quadrant. The abdomen was insufflated to 15 mmHg which he had tolerated well. Diagnostic laparoscopy demonstrated no injury to bowel, viscera or mesentery. An incarcerated indirect left inguinal hernia over 3-cm involving the sigmoid colon epiploica was found. Along the sigmoid colon, diverticula were identified. The right groin had a small indirect inguinal hernia without incarceration. Next, along the epigastrium, 8 mm robot trocar was placed. An 8-mm robotic trocar was placed under direct visualization at the right upper quadrant. An 8 mm port was placed at the left upper quadrant. All trocars were positioned between 10-cm apart from each other. A separate 12-cm trocar was placed along the right upper lateral abdominal wall for placement of mesh and sutures. The [employer] XI robot was primed, draped, prepared for docking along upper abdomen of the patient. The patient was positioned 14 steep Trendelenburg position I then went to the [employer] Xi console. The nutrition services assistant was at bedside for exchange of the robot arms and equipment. The incarcerated contents of the left groin was reduced and lysed free of adhesions including the lateral side wall of the sigmoid colon. The left indirect inguinal hernia sac was evaginated whereby the peritoneum was scored using Endo scissors with cautery. Once completely reduced into the abdominal cavity, the peritoneal sac of the hernia was stripped. The sac was resected and then passed off for further pathological analysis. The size of the hernia defect was 3 cm with intraoperative films obtained. The vas deferens was identified and undisturbed. Fatty spermatic cord lipoma was found and intact. Inguinal lipoma subfascial of 2-cm was resected. Using non-absorbable 2-0 VLOC, the peritoneal defect of the left inguinal hernia site was closed using purse string suture. The defect was closed with complete reduction of the left indirect inguinal hernia. As an onlay, an 11.[address] mesh by [employer] was cut in half and entered into the abdominal cavity via the 12 mm trocar. The mesh was tacked to the pelvis using non-absorbable 2-0 VLOC suture. Next, along the right groin demonstrated a very small tract with after further inspection confirmed an indirect right inguinal hernia. The small right inguinal hernia was less than 5-mm. Using non-absorbable 2-0 VLOC, the peritoneal defect of the right inguinal hernia site was closed using purse string suture. The robot was undocked from the patient's bedside. I then re-scrubbed into the case. Insufflation was released from the abdominal cavity and all instruments were removed from the abdominal cavity. The rest of incisions were reapproximated using 4-0 Monocryl in a running subcuticular fashion. Local anesthetic was placed along the incision including for a bilateral groin block. Incisions were cleansed using dilute hydrogen peroxide. Liquid glue was applied to the skin. At the end of the procedure, the needle, sponge and instrument counts had been verified correct by the surgical instrument maker. The patient had tolerated the procedure well and was taken to the postanesthesia care unit in stable condition. Plan - Discharge Summary Discharge Rx Participant: No New Discharge Prescriptions: New Tamsulosin [Flomax] 0.4 mg PO DAILY #5 cap Simethicone [Gas-X] 125 mg PO AC-TID PRN #20 capsule PRN Reason: Pain Ibuprofen [Motrin] 600 mg PO Q8HR PRN #30 tab PRN Reason: Pain Continue Omeprazole 20 mg PO QAM Atorvastatin [Lipitor] 20 mg PO DAILY HYDROcodone/APAP 10-325MG [[place] 10-325] 1 tab PO DAILY PRN PRN Reason: Pain Nyquil 1 dose PO HS PRN PRN Reason: sleep Discharge Medication List Omeprazole 20 mg PO QAM 12/05/16 [History] Atorvastatin [Lipitor] 20 mg PO DAILY 08/31/18 [History] HYDROcodone/APAP 10-325MG [[place] 10-325] 1 tab PO DAILY PRN 10/22/21 [History] Nyquil 1 dose PO HS PRN 10/22/21 [History] Ibuprofen [Motrin] 600 mg PO Q8HR PRN #30 tab 10/24/21 [Rx] Simethicone [Gas-X] 125 mg PO AC-TID PRN #20 capsule 10/24/21 [Rx] Tamsulosin [Flomax] 0.4 mg PO DAILY #5 cap 10/24/21 [Rx] Follow up Appointment(s)/Referral(s): Marii Jarrett MD [STAFF PHYSICIAN] - 10/31/21 (Telehealth ) Patient Instructions/Handouts: *[facility] - Managing Your Pain After Surgery Without Opioids, Laparoscopic Herniorrhaphy (IP), Inguinal Hernia Repair (DC) Activity/Diet/Wound Care/Special Instructions: PLEASE CONTACT YOUR PAIN SPECIALIST FOR NARCOTICS No lifting for 4 pounds in 2 weeks, November 07December shower. No bathtub soaks for 2 weeks, March 24th. DO NOT DRIVE WHILE ON NARCOTICS. Using antibacterial soap. Use ice along incisions for today to prevent swelling. Discharge Disposition: HOME SELF-CARE
[2021-10-24 16:50] VITALS: BP 121/77; PULSE 83
== END 2021-10-24 17:36 | disposition home or self-care (01) ==
LOC: OR 10:47
PROVIDERS: ATTEND Surgery Plastic and Reconstructive Surgery
DX: K40.30 Unilateral inguinal hernia, with obstruction, without gangrene, not specified as recurrent (principal); G89.4 Chronic pain syndrome; K21.9 Gastro-esophageal reflux disease without esophagitis; E78.5 Hyperlipidemia, unspecified; F41.1 Generalized anxiety disorder; F17.200 Nicotine dependence, unspecified, uncomplicated; D17.79 Benign lipomatous neoplasm of other sites
CPT/HCPCS: 49650; 64999; 85027; 88302; C1781; J2250; J1644; J1100; J2710; J2405; J2001; J3010; J1170 ×2; J2795; J0330; J2704; J1790

== ENCOUNTER → 2022-02-20 | Outpatient (CLI) | payer MEDICARE, OTHER ==
--- NOTE | 2022-02-20 12:33 | CT ---
EXAMINATION TYPE: CT sinus wo con DATE OF EXAM: 02/20/2022 COMPARISON: None HISTORY: Sinusitis. LT ear problems CT DLP: 544.70 mGycm CONTRAST: 0 mL of Isovue 300 The paranasal sinuses are examined in the axial plane at 2 mm thick sections. Reconstructed images i n the coronal plane were obtained. There is dental amalgam scatter artifact A small retention cyst within the left maxillary sinus near the hiatus; the narrowest. Mild mucosal thickening within ethmoid air cells slightly greater on the left. There is a retention cyst within t he posterior left sphenoid sinus. The frontal sinuses are clear. There is a left meliza bullosa. The septum is evaluated. There is septal deviation to the right. The right ostiomeatal unit is patent. The left ostiomeatal unit. The obstructed from mild mucosal thi ckening. Torus tubarius and fossa of Rosenmuller as visualized appear normal. Mastoid air cells appear clear. IMPRESSIONS: 1. Obstruction of the left ostiomeatal unit. 2. Scattered mucosal thickening and small retention cyst. Correlate for chronic sinusitis. 3. Right septal deviation
== END | disposition home or self-care (01) ==
LOC: RADCTMAIN 11:37
PROVIDERS: ATTEND Family Medicine
DX: J34.89 Other specified disorders of nose and nasal sinuses (principal)
CPT/HCPCS: 70486

== ENCOUNTER 2022-05-07 13:43 | Emergency (ER) | payer OTHER, MEDICARE ==
[2022-05-07 13:53] VITALS: RESP 18; TEMP 99.3
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
[2022-05-07 14:54] LABS: ALT 18 U/L (4-49); AST 29 U/L (17-59); African American GFR (CKD) >90 (>60 ml/min/1.73 sqM); Albumin 4.3 g/dL (3.5-5.0); Alcohol <10 mg/dL; Alkaline Phosphatase 112 U/L (38-126); Anion Gap 12 mmol/L; Blood Urea Nitrogen 12 mg/dL (9-20); Calcium 9.1 mg/dL (8.4-10.2); Carbon Dioxide 21 mmol/L (22-30); Chloride 105 mmol/L (98-107); Glucose 107 mg/dL (74-99); Non-African American GFR(CKD) >90 (>60 ml/min/1.73 sqM); Potassium 4.4 mmol/L (3.5-5.1); Sodium 138 mmol/L (137-145); Total Bilirubin 0.7 mg/dL (0.2-1.3); Total Protein 6.7 g/dL (6.3-8.2)
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
[2022-05-07 15:23] LABS: Partial Thromboplastin Time 24.1 sec (22.0-30.0); Prothrombin Time 10.6 sec (9.0-12.0)
[2022-05-07] MEDS ORDERED: MORPHINE SULFATE 4 MG/ML SYRINGE IV STA (15:42)
[2022-05-07 15:53] LABS: Basophils # (A) 0.1 k/uL (0-0.2); Basophils % (A) 1 %; Eosinophils # (A) 0.1 k/uL (0-0.7); Eosinophils % (A) 2 %; HCT 45.9 % (39.0-53.0); HGB 15.6 gm/dL (13.0-17.5); Lymphocytes # (A) 1.8 k/uL (1.0-4.8); Lymphocytes % (A) 24 %; MCH 32.5 pg (25.0-35.0); MCV 95.6 fL (80.0-100.0); Mean Platelet Volume 8.5; Monocytes # (A) 0.6 k/uL (0-1.0); Monocytes % (A) 7 %; Neutrophils # (A) 5.1 k/uL (1.3-7.7); Neutrophils % (A) 65 %; Platelet Count 177 k/uL (150-450); RBC 4.81 m/uL (4.30-5.90); RDW 13.1 % (11.5-15.5); WBC 7.8 k/uL (3.8-10.6)
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
[2022-05-07] MEDS ORDERED: ACET/COD 300 MG/30 MG STARTER PACK 6 TAB BTL PO STA (16:33)
[2022-05-07 16:45] VITALS: BP 122/80; PULSE 82
== END 2022-05-07 16:49 | disposition home or self-care (01) ==
LOC: EC 13:43
DX: M79.641 Pain in right hand (principal); E78.5 Hyperlipidemia, unspecified; I10 Essential (primary) hypertension; K21.9 Gastro-esophageal reflux disease without esophagitis; Z79.83 Long term (current) use of bisphosphonates; F17.200 Nicotine dependence, unspecified, uncomplicated; V89.2XXA Person injured in unspecified motor-vehicle accident, traffic, initial encounter
CPT/HCPCS: 93005; 86900; 86901; 80053; 84484; 85025; 85610; 85730; 86850; 80320; 72170; 73130; 71045; 72125; 70450; 71260; 74177; 99285; 96374; J2270; Q9967